=== PATIENT | male | born 1940 | race Caucasian/White ===

== ENCOUNTER 2021-03-31 05:08 | Emergency (ER) | payer OTHER ==
[2021-03-31] MEDS ORDERED: ACETAMINOPHEN 1000 MG/100 ML VIAL (NON FORMULARY) IVPB ONE (05:45)
[2021-03-31] MEDS ORDERED: FAMOTIDINE 20 MG/50 ML IVPB 20 MG/50 ML MG IVPB ONE ×2 (05:45→05:53)
[2021-03-31] MEDS ORDERED: MAG HYDROX/AL HYDROX/SIMETH 30 ML UNIT-DOSE CUP PO ONE (05:45)
[2021-03-31] MEDS ORDERED: MAG HYDROX/AL HYDROX/SIMETH 30 ML UNIT-DOSE CUP ONE (05:53)
[2021-03-31] MEDS ORDERED: ACETAMINOPHEN INJECTION 100 ML IVPB ONE (05:53)
[2021-03-31 05:55] LABS: BASO % 0.7 % (0-2.0); EOS % 0.6 % (0-4.5); HEMATOCRIT 39.5 % (35.4-49); HEMOGLOBIN 13.8 GM/dL (11.7-16.9); LYMPH % 20.1 % (8-40); MCH 31.4 pg (25.7-33.7); MCHC 34.9 g/dl (32.0-35.9); MEAN PLT VOLUME 9.8 fl (7.5-11.1); NEUT % 70.6 % (42.8-82.8); PLATELET COUNT 177 K/MM3 (134-434); RBC 4.39 M/mm3 (4.00-5.60); RDW 14.1 % (11.9-15.9)
[2021-03-31 06:01] LABS: INR 1.07 (0.83-1.09); PROTHROMBIN TIME (PATIENT) 13.1 SEC (9.7-13.0)
[2021-03-31 06:03] LABS: ACTIVATED PTT 28.2 SECONDS (25.2-36.5)
[2021-03-31 06:08] VITALS: TEMP 97.1; BMI 35.2
[2021-03-31 06:14] LABS: CHLORIDE 104 mmol/L (98-107); SODIUM 138 mmol/L (136-145)
[2021-03-31 06:16] LABS: ALBUMIN 3.7 g/dl (3.4-5.0); ANION GAP 7 MMOL/L (8-16); BLOOD UREA NITROGEN 21.4 mg/dL (7-18); CALCIUM 9.5 mg/dL (8.5-10.1); CO2 28 mmol/L (21-32); GLUCOSE,RANDOM 175 mg/dL (74-106)
[2021-03-31 06:19] LABS: CREATININE 1.6 mg/dL (0.55-1.3); SGOT/AST 27 U/L (15-37); SGPT/ALT 47 U/L (13-61)
[2021-03-31 06:21] LABS: BILIRUBIN,TOTAL 0.4 mg/dL (0.2-1); TOT PROT 7.8 g/dl (6.4-8.2)
[2021-03-31 06:22] LABS: ALK PHOS 83 U/L (45-117)
[2021-03-31] MEDS ORDERED: dilTIAZem HCL 60 MG TABLET PO ONE (08:35)
[2021-03-31] MEDS ORDERED: NADOLOL 20 MG TABLET (FP) PO SCH (10:00)
[2021-03-31] MEDS ORDERED: NIFEdipine E.R 60 MG TABLET PO ONE (10:15)
[2021-03-31] MEDS ORDERED: NIFEdipine E.R. 30 MG TABLET ONE (10:28)
[2021-03-31 11:58] VITALS: BP 165/108; PULSE 72
== END 2021-03-31 11:58 | disposition home or self-care (01) ==
LOC: JER 05:08
PROC: 3E0333Z Introduction of Anti-inflammatory into Peripheral Vein, Percutaneous Approach (ICD-10-PCS; principal; 2021-03-31)
PROC: 3E033GC Introduction of Other Therapeutic Substance into Peripheral Vein, Percutaneous Approach (ICD-10-PCS; 2021-03-31)
DX: R10.13 Epigastric pain (principal)
CPT/HCPCS: 36415; 71045-TC-FY; 74176-TC; 80053; 83605; 84484; 85025; 85610; 85730; 93005; 93010; 96374; 96375; 99285-25; C9803; J0131; U0003; U0005

== ENCOUNTER 2023-04-10 04:53 | Day surgery (SDC) | payer OTHER ==
[2023-04-04 12:36] VITALS: BMI 38.6
[2023-04-10 16:55] VITALS: TEMP 87.5
[2023-04-10 17:26] VITALS: BP 122/59; PULSE 66; RESP 18
== END 2023-04-10 17:32 | disposition home or self-care (01) ==
LOC: JASU-ENDO 04:53
PROVIDERS: ATTEND Student in an Organized Health Care Education/Training Program
PROC: 0DBK8ZX Excision of Ascending Colon, Via Natural or Artificial Opening Endoscopic, Diagnostic (ICD-10-PCS; principal; 2023-04-10 14:00)
DX: D12.2 Benign neoplasm of ascending colon (principal); K59.89 Other specified functional intestinal disorders; I10 Essential (primary) hypertension; E11.9 Type 2 diabetes mellitus without complications; Z79.4 Long term (current) use of insulin
CPT/HCPCS: 82962; 88305-TC

== ENCOUNTER 2024-01-23 09:05 | Inpatient (IN) | payer OTHER ==
[2024-01-23] MEDS ORDERED: FAMOTIDINE 20 MG/50 ML IVPB 20 MG/50 ML MG IVPB ONE (09:38)
[2024-01-23 09:57] LABS: BASO % 0.5 % (0-2.0); EOS % 0.7 % (0-4.5); HEMATOCRIT 38.8 % (35.4-49); HEMOGLOBIN 12.9 GM/dL (11.7-16.9); LYMPH % 25.4 % (8-40); MCH 29.8 pg (25.7-33.7); MCHC 33.2 g/dl (32.0-35.9); MEAN CELL VOLUME 89.9 fl (80-96); MEAN PLT VOLUME 9.1 fl (7.5-11.1); MONO % 9.1 % (3.8-10.2); NEUT % 64.3 % (42.8-82.8); PLATELET COUNT 243 10^3/uL (134-434); RBC 4.31 M/mm3 (4.00-5.60); RDW 13.5 % (11.9-15.9); WHITE BLOOD COUNT 9.7 K/mm3 (4.0-10.0)
[2024-01-23] MEDS: FAMOTIDINE 20 MG/50 ML IVPB 20 MG/50 ML MG IVPB ONE (10:09)
[2024-01-23] MEDS: ACETAMINOPHEN 1000 MG/100 ML BAG IVPB ONE (10:09)
[2024-01-23 10:14] LABS: POTASSIUM 3.8 mmol/L (3.5-5.1)
[2024-01-23 10:15] LABS: CALCIUM 9.1 mg/dL (8.5-10.1)
[2024-01-23 10:17] LABS: ALBUMIN 3.2 g/dl (3.4-5.0); BLOOD UREA NITROGEN 20.4 mg/dL (7-18)
[2024-01-23 10:20] LABS: CREATININE 1.6 mg/dL (0.55-1.3)
[2024-01-23 10:21] LABS: BILIRUBIN,TOTAL 0.3 mg/dL (0.2-1); TOT PROT 7.2 g/dl (6.4-8.2)
[2024-01-23] MEDS: morphine CARPU-JECT 2 MG/1 ML DISP.SYRIN IVPUSH ONE ×2 (11:08→14:54)
[2024-01-23] MEDS ORDERED: ONDANSETRON 4 MG/2 ML VIAL ONE (11:13)
[2024-01-23 11:21] LABS: EPI CELLS 22 /uL (0-25.1); HYALINE CASTS 1 /uL (0-3.1); PH,URINE 7.5 (5.0-8.0); URINE APPEARANCE CLEAR; URINE BACTERIA 46 /uL (0-1359); URINE BILIRUBIN NEGATIVE (NEGATIVE); URINE COLOR YELLOW; URINE GLUCOSE (UA) TRACE (NEGATIVE); URINE KETONE NEGATIVE (NEGATIVE); URINE LEUK ESTERASE NEGATIVE (NEGATIVE); URINE NITRITE NEGATIVE (NEGATIVE); URINE PROTEIN 4+ (NEGATIVE); URINE RBC 9 /uL (0-23.9); URINE UROBILINOGEN 0.2 mg/dL (0.2-1.0); URINE WBC 34 /uL (0-25.8)
[2024-01-23] MEDS: SODIUM CHLORIDE 500 ML IV STA (11:22)
[2024-01-23] MEDS: ONDANSETRON 4 MG/2 ML VIAL IVPUSH ONE (11:22)
[2024-01-23] MEDS ORDERED: morphine SULFATE 4 MG/ML VIAL ONE (14:46)
[2024-01-23] MEDS ORDERED: hydrALAZINE HCL 10 MG TABLET ONE (14:47)
[2024-01-23] MEDS: hydrALAZINE HCL 10 MG TABLET PO ONE (14:53)
[2024-01-23] MEDS: MAGNESIUM SULF 50% (8.12 MEQ/2 ML-1 GM VIAL) IVPB ONE (14:53)
[2024-01-23] MEDS ORDERED: HYDROmorphone HCl 2 MG/ML VIAL ONE (17:26)
[2024-01-23] MEDS: HYDROmorphone HCl 2 MG/ML VIAL IVPB ONE (17:32)
[2024-01-23] MEDS ORDERED: LABETALOL HCL 20 MG/4 ML VIAL ONE (17:52)
[2024-01-23] MEDS: LABETALOL HCL 5 MG/1 ML (100MG/20 ML VIAL) IVPUSH ONE (18:06)
[2024-01-23 20:13] VITALS: BMI 36.3
[2024-01-24] MEDS ORDERED: ACETAMINOPHEN 1000 MG/100 ML BAG IVPB PRN (10:42)
[2024-01-24] MEDS ORDERED: DEXTROSE 5%-0.45% SALINE 1,000 ML IV SCH (10:45)
[2024-01-24] MEDS: NIFEdipine E.R 60 MG TABLET PO SCH (13:18)
[2024-01-24] MEDS: INSULIN ASPART SLIDING SCALE (NOVOLOG) 1 VIAL SQ SCH ×2 (13:18→21:38)
[2024-01-24] MEDS ORDERED: LIDOCAINE HCL/PF 2% SDV 5ML VIAL ONE (13:39)
[2024-01-24] MEDS ORDERED: MIDAZOLAM HCL 2 MG/2 ML SINGLE DOSE VIAL ONE (13:39)
[2024-01-24] MEDS ORDERED: SUCCINYLCHOLINE CHLORIDE 200 MG/10 ML SYRINGE ONE (13:39)
[2024-01-24] MEDS ORDERED: PROPOFOL 20 ML ONE (13:39)
[2024-01-24] MEDS ORDERED: FENTANYL CITRATE/PF 50 MCG/ML VIAL ONE ×3 (13:39→16:23)
[2024-01-24] MEDS ORDERED: ROCURONIUM BROMIDE 50 MG/5 ML SYRINGE ONE (13:46)
[2024-01-24] MEDS ORDERED: ceFAZolin SODIUM 1 GM VIAL ONE (14:05)
[2024-01-24] MEDS: ceFAZolin SODIUM 1 GM VIAL IVPB ONE (14:05)
[2024-01-24] MEDS ORDERED: DEXAMETHASONE SOD PHOSPHATE 4 MG/1 ML VIAL ONE (14:05)
[2024-01-24] MEDS: BUPIVACAINE HCL/PF 0.25% (2.5MG/ML) 10 ML VIAL IJ ONE (14:20)
[2024-01-24] MEDS ORDERED: METOPROLOL TARTRATE 5 MG/5 ML VIAL ONE (15:06)
[2024-01-24] MEDS ORDERED: ONDANSETRON 4 MG/2 ML VIAL ONE (15:54)
[2024-01-24] MEDS ORDERED: KETOROLAC TROMETHAMINE 30 MG/1 ML VIAL ONE (15:54)
[2024-01-24] MEDS ORDERED: ONDANSETRON 4 MG/2 ML VIAL IVPUSH PRN ×2 (16:15→16:42)
[2024-01-24] MEDS ORDERED: PROMETHAZINE HCL 25 MG/1 ML VIAL IVPB PRN ×2 (16:15→16:42)
[2024-01-24] MEDS ORDERED: LACTATED RINGERS SOLUTION 1,000 ML IV SCH ×2 (16:15→16:42)
[2024-01-24] MEDS: FENTANYL CITRATE/PF 50 MCG/ML VIAL ONE (16:20)
[2024-01-24] MEDS: ACETAMINOPHEN INJECTION 100 ML IVPB ONE (16:20)
[2024-01-24] MEDS: ACETAMINOPHEN 1000 MG/100 ML BAG IVPB ONE (16:20)
[2024-01-24] MEDS ORDERED: ACETAMINOPHEN 1000 MG/100 ML BAG IVPB ONE (16:42)
[2024-01-24 17:20] VITALS: RESP 18
[2024-01-24] MEDS: PIPERACILLIN/TAZOB 3.375 GM 3.375 GM in DEXTROSE 5%-WATER - 50 ML IVPB SCH (18:28)
[2024-01-24] MEDS: hydrALAZINE HCL 10 MG TABLET PO SCH (21:18)
[2024-01-24] MEDS: ATORVASTATIN CA 20 MG TABLET (FP) PO SCH (21:19)
[2024-01-24] MEDS ORDERED: hydrALAZINE HCL 10 MG TABLET PO SCH (22:00)
[2024-01-24] MEDS ORDERED: ATORVASTATIN CA 20 MG TABLET (FP) PO SCH (22:00)
[2024-01-25] MEDS: ACETAMINOPHEN 1000 MG/100 ML BAG IVPB PRN ×2 (06:20→13:41)
[2024-01-25] MEDS: ENOXAPARIN NA (PORCINE) 40 MG/0.4 ML DISP.SYRIN SQ SCH (09:25)
[2024-01-25] MEDS: NIFEdipine E.R 60 MG TABLET PO SCH (09:25)
[2024-01-25 09:53] LABS: BASO % 0.1 % (0-2.0); HEMATOCRIT 30.8 % (35.4-49); HEMOGLOBIN 10.6 GM/dL (11.7-16.9); LYMPH % 5.9 % (8-40); MCH 30.7 pg (25.7-33.7); MCHC 34.4 g/dl (32.0-35.9); MEAN CELL VOLUME 89.1 fl (80-96); MEAN PLT VOLUME 9.9 fl (7.5-11.1); MONO % 6.1 % (3.8-10.2); NEUT % 87.9 % (42.8-82.8); PLATELET COUNT 152 10^3/uL (134-434); RBC 3.45 M/mm3 (4.00-5.60); RDW 13.7 % (11.9-15.9); WHITE BLOOD COUNT 10.3 K/mm3 (4.0-10.0)
[2024-01-25] MEDS ORDERED: ENOXAPARIN NA (PORCINE) 40 MG/0.4 ML DISP.SYRIN SQ SCH (10:00)
[2024-01-25 10:11] LABS: POTASSIUM 3.9 mmol/L (3.5-5.1)
[2024-01-25 10:29] LABS: BLOOD UREA NITROGEN 30.2 mg/dL (7-18)
[2024-01-25 10:32] LABS: CREATININE 2.3 mg/dL (0.55-1.3)
[2024-01-25 10:34] LABS: BILIRUBIN,TOTAL 1.9 mg/dL (0.2-1); TOT PROT 5.9 g/dl (6.4-8.2)
[2024-01-25 10:43] LABS: ALBUMIN 2.3 g/dl (3.4-5.0)
[2024-01-25 10:47] LABS: ALBUMIN 2.3 g/dl (3.4-5.0)
[2024-01-25 10:50] LABS: BILIRUBIN,DIRECT 1.3 mg/dL (0.0-0.2)
[2024-01-25 10:52] LABS: BILIRUBIN,TOTAL 1.9 mg/dL (0.2-1); TOT PROT 5.8 g/dl (6.4-8.2)
[2024-01-25] MEDS ORDERED: PIPERACILLIN/TAZOB 3.375 GM 3.375 GM in DEXTROSE 5%-WATER - 50 ML IVPB SCH (18:30)
[2024-01-25] MEDS: SODIUM CHLORIDE 0.45% 1,000 ML IV SCH (18:31)
[2024-01-25] MEDS: PIPERACILLIN/TAZOB 3.375 GM 3.375 GM in DEXTROSE 5%-WATER - 50 ML IVPB SCH (21:12)
[2024-01-25] MEDS: traMADol HCL 50 MG TABLET PO PRN (21:12)
[2024-01-26 09:20] LABS: BASO % 0.3 % (0-2.0); EOS % 0.4 % (0-4.5); HEMATOCRIT 33.5 % (35.4-49); HEMOGLOBIN 11.1 GM/dL (11.7-16.9); MCH 29.8 pg (25.7-33.7); MCHC 33.2 g/dl (32.0-35.9); MEAN CELL VOLUME 89.9 fl (80-96); MEAN PLT VOLUME 9.7 fl (7.5-11.1); MONO % 13.4 % (3.8-10.2); NEUT % 68.9 % (42.8-82.8); PLATELET COUNT 168 10^3/uL (134-434); RBC 3.73 M/mm3 (4.00-5.60); RDW 13.8 % (11.9-15.9)
[2024-01-26 09:39] LABS: POTASSIUM 3.7 mmol/L (3.5-5.1)
[2024-01-26 09:41] LABS: CALCIUM 8.4 mg/dL (8.5-10.1)
[2024-01-26 09:42] LABS: ALBUMIN 2.4 g/dl (3.4-5.0); BLOOD UREA NITROGEN 25.5 mg/dL (7-18)
[2024-01-26 09:45] LABS: BILIRUBIN,DIRECT 0.5 mg/dL (0.0-0.2)
[2024-01-26 09:46] LABS: CREATININE 1.8 mg/dL (0.55-1.3)
[2024-01-26 09:47] LABS: BILIRUBIN,TOTAL 1.1 mg/dL (0.2-1)
[2024-01-26 09:48] LABS: TOT PROT 6.4 g/dl (6.4-8.2)
[2024-01-26 14:37] VITALS: BP 144/86; PULSE 92; TEMP 98.5
[2024-01-26] MEDS ORDERED: PIPERACILLIN/TAZOB 3.375 GM 3.375 GM in DEXTROSE 5%-WATER - 50 ML IVPB SCH (18:45)
== END 2024-01-26 16:00 | disposition home or self-care (01) | DRG 419 ==
LOC: JER 09:05 → JERBED 16:34 → UNDOADMOB 16:34 → J5S 19:22 → JERBED 19:22 → INTOOBSV 01-24 10:39 → OBSVTOIN 01-24 10:39 → JASUSAT 01-24 13:17 → J5S 01-24 13:22
PROVIDERS: ADMIT Internal Medicine; ATTEND Internal Medicine
PROC: 0FT44ZZ Resection of Gallbladder, Percutaneous Endoscopic Approach (ICD-10-PCS; principal; 2024-01-24 12:30)
DX: K81.2 Acute cholecystitis with chronic cholecystitis (principal); M10.9 Gout, unspecified; R79.89 Other specified abnormal findings of blood chemistry; J44.9 Chronic obstructive pulmonary disease, unspecified; E66.9 Obesity, unspecified; Z68.36 Body mass index [BMI] 36.0-36.9, adult; N28.1 Cyst of kidney, acquired; I12.9 Hypertensive chronic kidney disease with stage 1 through stage 4 chronic kidney disease, or unspecified chronic kidney disease; E11.22 Type 2 diabetes mellitus with diabetic chronic kidney disease; N18.9 Chronic kidney disease, unspecified; Z79.84 Long term (current) use of oral hypoglycemic drugs
CPT/HCPCS: 36415; 71045-TC-FY; 74176-TC; 76705-TC; 76775-TC; 80053; 80076; 81003; 82962; 83036; 83605; 83690; 83735; 84484; 85025; 88304-TC; 93005; 93010; 94760; 99285-25; J0131